=== PATIENT | female | born 1995 | race Caucasian/White ===

== ENCOUNTER 2017-09-28 03:48 | Emergency (ER) | payer MEDICAID ==
[~2017-09-28] VITALS: Ht 162.6 cm; Wt 90.7 kg
--- NOTE | 2017-09-28 03:56 | ER.PDOC ---
General Chief Complaint: Requesting Medical Care Stated Complaint: BACK PAIN,NAUSEA Time seen by MD: 04:00 Source: patient Exam Limitations: no limitations History of Present Illness Initial Comments patient is a at 16 weeks confirmed by us who presents wtih lower back pain and vomiting. no vagina d/c or bleeding. no abd pain. states pain started around1 am and then started to ahve vomiting. states pain is in middle lower back and radiates bilateral. no dysuira. no hematuria. no fevers. Timing/Duration: just prior to arrival Severity/Quality: moderate Location of Pain: low back pain Allergies: Coded Allergies: No Known Allergies (Unverified , 03/28/15) Past Medical History Medical History: no pertinent history Social History Smoking: non-smoker Alcohol Use: none Drug Use: none Review of Systems Constitutional: denies chills, denies fever, denies weakness Respiratory: denies cough, denies shortness of breath, denies wheezing Cardiovascular: denies chest pain, denies edema, denies syncope Gastrointestinal: denies abdominal pain, denies nausea, denies vomiting Genitourinary: denies discharge, denies dysuria, denies frequency Musculoskeletal: back pain, denies muscle stiffness, denies neck pain Skin: denies lesions, denies lumps, denies rash Psychiatric/Neurological: denies anxiety, denies emotional problems, denies headache Endocrine: denies excessive sweating, denies unexplained weight gain, denies unexplaned weight loss Hematologic/Lymphatic: denies blood clots, denies swollen glands All Other Systems: Reviewed and Negative Physical Exam General Appearance: No Apparent Distress, WD/WN EENT: eyes nml inspection, nml ENT inspection, pharynx nml Neck: nml inspection, non-tender Cardiovascular/Respiratory: Regular Rate, Rhythm, No M/R/G, Normal Peripheral Pulses, Normal Breath Sounds, No Respiratory Distress Abdomen: Normal Bowel Sounds, Non Tender, Soft Back: nml inspection (no cva ttp) Extremities: Normal Range of Motion, Non-Tender, Normal Inspection, No Pedal Edema, No Calf Tenderness, Normal Capillary Refill 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, No Motor/Sensory Deficits, Alert, Normal Mood/Affect, Oriented x 3 Skin: Normal Color, Warm/Dry Results/Orders Results/Orders Laboratory Tests Test 09/28/17 04:00 Urine Collection Type UNKNOWN Urine Color YELLOW (YELLOW) Urine Appearance CLEAR (CLEAR) Urine Bilirubin NEGATIVE MG/DL (NEGATIVE) Urine Ketones NEGATIVE (NEGATIVE) Urine Specific [place] 1.025 (1.005-1.035) Urine pH 6 (5.0-6.0) Urine Protein NEGATIVE (NEGATIVE) Urine Urobilinogen 1.0 (NEGATIVE) Urine Nitrate NEGATIVE (NEGATIVE) Urine Leukocyte Esterase 100/ul 1+ (NEGATIVE) Urine Blood NEGATIVE (NEGATIVE) Urine RBC NONE SEEN RBC/HPF (NONE Urine WBC 2-5 WBC/HPF (0-2) Urine Squamous Epithelial Cells MANY #/HPF (FEW) Urine Bacteria NONE SEEN (NONE SEEN) Urine Other 4+ MUCUS #/HPF Urine Glucose NORMAL (NEGATIVE) Administered Medications Medications (Trade) Dose Ordered Sig/Miryam Route PRN Reason Start Time Stop Time Status Last Admin Dose Admin Promethazine HCl (Phenergan) 12.5 mg STAT STAT IM 09/28/17 04:07 09/28/17 04:08 DC 09/28/17 04:21 Progress Progress patient presnts wtih low back pain and nausea and vomiting. patient on exam is afebrile, benign abd exam. no cva ttp. ua ordered phenergan ordered fhts ordered patient fhts 150s. patient urine wihtout infection. no ketones to indicated dehydration. hr also nl. patient s/p meds. tolerating po. at this time given benign abd exam, afebrile, no signs of infection. blv pateitn can be dced with close outpatient f/u. patient has nausea meds at home. patient and mother explained results. risks and return precautions discussed. understands and agrees with plan. Departure Time of Disposition: 04:38 Disposition: 01 HOME, SELF-CARE Impression: Primary Impression: Back pain affecting in second trimester Condition: Stable Patient Instructions: Back Pain in Referrals: [facility] BUENO (PCP) PRIMARY CARE PROVIDER Additional Instructions: please f/u with you ob-deck hand later today Duration or Time Spent with Pa: 30 JOSE ANGEL QUIGLEY MD Sep 28, 2017 03:55
[2017-09-28] MEDS ORDERED: REGLAN PO STA (03:58)
[2017-09-28] MEDS ORDERED: PHENERGAN IM STA (04:07)
[2017-09-28 04:13] LABS: BILIRUBIN,URINE NEGATIVE (NEGATIVE)
[2017-09-28] MEDS ORDERED: PHENERGAN ONE (04:14)
--- NOTE | 2017-09-28 04:18 | NUR ---
FHR [id number] PER DOPPLER
[2017-09-28 04:22] LABS: APPEARANCE,URINE CLEAR (CLEAR); UA COLOR YELLOW (YELLOW)
[2017-09-28 04:58] VITALS: BP 111/51
== END 2017-09-28 04:55 | disposition home or self-care (01) ==
LOC: ER 03:48
DX: O26.892 Other specified pregnancy related conditions, second trimester (principal); M54.5 Low back pain; O21.9 Vomiting of pregnancy, unspecified; Z3A.16 16 weeks gestation of pregnancy
CPT/HCPCS: 81000; 96372; 99283; J2550

== ENCOUNTER 2017-11-09 03:40 | Observation (INO) | payer BC, MEDICAID ==
[~2017-11-09] VITALS: Ht 162.6 cm; Wt 89.8 kg
[2017-11-09 04:15] LABS: BILIRUBIN,URINE NEGATIVE (NEGATIVE); UROBILINOGEN,URINE NORMAL (NEGATIVE)
[2017-11-09 04:16] LABS: APPEARANCE,URINE CLEAR (CLEAR); UA COLOR YELLOW (YELLOW)
[2017-11-09] MEDS ORDERED: DOXY1TAB4 PO (05:04)
== END 2017-11-09 05:35 | disposition home or self-care (01) ==
LOC: ATP 03:40
PROVIDERS: ADMIT Hospitalist; ATTEND Hospitalist
DX: O21.2 Late vomiting of pregnancy (principal); Z3A.21 21 weeks gestation of pregnancy
CPT/HCPCS: 76825; 80307; 81002; G0378 ×2

== ENCOUNTER 2017-12-23 03:18 | Observation (INO) | payer BC, MEDICAID ==
[~2017-12-23] VITALS: Ht 162.6 cm; Wt 88.0 kg
[~2017-12-23 03:18] MED LIST: DOXY1TAB4 PO
[2017-12-23 03:42] LABS: BILIRUBIN,URINE NEGATIVE (NEGATIVE); UROBILINOGEN,URINE NORMAL (NEGATIVE)
[2017-12-23 03:59] LABS: APPEARANCE,URINE HAZY (CLEAR); UA COLOR YELLOW (YELLOW)
[2017-12-23 05:46] VITALS: BP 122/86
== END 2017-12-23 06:00 | disposition home or self-care (01) ==
LOC: ATP 03:18
PROVIDERS: ADMIT Obstetrics & Gynecology; ATTEND Obstetrics & Gynecology
DX: O99.89 Other specified diseases and conditions complicating pregnancy, childbirth and the puerperium (principal); M54.9 Dorsalgia, unspecified; Z3A.28 28 weeks gestation of pregnancy
CPT/HCPCS: 59025; 80307; 81000; 87086; G0378 ×3

== ENCOUNTER → 2018-06-05 | Outpatient (CLI) | payer BC, MEDICAID ==
--- NOTE | 2018-06-05 12:24 | DIREP ---
PROCEDURE:CT ABDOMEN W/O COMPARISON:None. INDICATIONS:R10.13 EPIGASTRIC PAIN TECHNIQUE:Axial images were created through the abdomen without intravenous contrast material. Oral contrast was administered. Sagittal and coronal reconstructions were performed from source images. FINDINGS: LUNG BASES:Normal. No visible pulmonary or pleural disease. LIVER:Normal. No significant liver lesions are identified. BILIARY:Send some are. There is a gallstone in the gallbladder neck. Questionable thickening of the gallbladder wall. Clinical correlation for cholecystitis is recommended. If indicated gallbladder ultrasound can be performed. PANCREAS:Normal. No lesion, fluid collection, ductal dilatation, or atrophy. SPLEEN:Normal. No enlargement or focal lesion. ADRENALS:Normal. No mass or enlargement. URINARY TRACT:Normal. No focal lesions or hydronephrosis. AORTA/VASCULAR:Normal. No aneurysm. RETROPERITONEUM:Normal. No mass or adenopathy. BOWEL/MESENTERY:The appendix is visualized and appears normal. The distal appendix is not included on this examination. There is no intestinal obstruction, free fluid, free air or mesenteric inflammatory changes. ABDOMINAL WALL:Normal. No mass or hernia. PELVIC ORGANS:The pelvis was not imaged. BONES:Normal for age. No bony lesion or acute fracture. OTHER:Negative. CONCLUSION: 1. Cholelithiasis with questionable gallbladder wall thickening. Clinical correlation for cholecystitis is recommended. Consider correlation with gallbladder ultrasound. Dictated by: Jamie Hoang MD on 06/05/2018 at 12:20 PM
== END | disposition home or self-care (01) ==
LOC: CT 09:54
PROVIDERS: ATTEND Nurse Practitioner Family
DX: K80.20 Calculus of gallbladder without cholecystitis without obstruction (principal)
CPT/HCPCS: 74150

== ENCOUNTER 2018-06-14 00:53 | Day surgery (SDC) | payer BC ==
[2018-06-12 14:32] VITALS: BP 118/63
[2018-06-12 14:50] LABS: BASOPHIL % 0.5 % (0.0-0.2); EOSINOPHIL # 0.2 10^3/uL (0.0-0.2); EOSINOPHIL % 2.9 % (0.0-5.0); HEMOGLOBIN 13.1 g/dL (12.0-15.0); LYMPHOCYTES # 2.4 10^3/uL (1.0-4.8); LYMPHOCYTES % 38.8 % (24.0-44.0); MEAN CELL HGB 25.8 pg (26-34); MEAN CELL HGB CONCENTRATION 32.7 g/dL (33-37); MEAN CORP VOLUME 79.1 fL (78-100); MEAN PLATELET VOLUME 9.9 fL (7.8-11.0); MONOCYTES # 0.4 10^3/uL (0.3-0.8); MONOCYTES % 6.2 % (5.0-12.0); NEUTROPHIL # 3.1 10^3/uL (1.8-7.7); NEUTROPHILS % 51.3 % (41.0-85.0); RED CELL DISTRIBUTION WIDTH 14.9 % (11.5-14.5); WHITE BLOOD CELL 6.1 10^3/uL (4.5-11.0)
[2018-06-12 15:04] LABS: CALCIUM 9.3 mg/dL (8.4-10.5); CARBON DIOXIDE 23.5 mmol/L (20.0-32)
[~2018-06-14] VITALS: Ht 162.6 cm; Wt 97.5 kg
[2018-06-14] VITALS (15 sets, daily range): BP systolic 100–147; BP diastolic 48–78
[~2018-06-14 00:53] MED LIST changes: +AMOX1TAB63 PO
[2018-06-14] MEDS ORDERED: NS 100ML 100 ML IV ONE (05:17)
[2018-06-14] MEDS ORDERED: LACTATED RINGERS 1,000 ML ONE ×4 (05:17→15:41)
[2018-06-14] MEDS ORDERED: MEFOXIN ONE (05:18)
[2018-06-14] MEDS ORDERED: LOVENOX SQ ONE ×2 (05:18→10:30)
[2018-06-14] MEDS ORDERED: DECADRON ONE (06:48)
[2018-06-14] MEDS ORDERED: NEOSTIGMINE ONE (06:49)
[2018-06-14] MEDS ORDERED: LIDOCAINE 2% VIAL ONE (06:49)
[2018-06-14] MEDS ORDERED: QUELICIN ONE (06:49)
[2018-06-14] MEDS ORDERED: ZOFRAN ONE ×3 (06:49→14:33)
[2018-06-14] MEDS ORDERED: ZEMURON IV ONE (06:49)
[2018-06-14] MEDS ORDERED: TORADOL ONE (06:49)
[2018-06-14] MEDS ORDERED: DILAUDID ONE (06:49)
[2018-06-14] MEDS ORDERED: SUBLIMAZE ONE (06:50)
[2018-06-14] MEDS ORDERED: DIPRIVAN IV ONE (06:50)
[2018-06-14] MEDS ORDERED: EXPAREL 266 MG/20 ML VIAL IJ ONE (08:30)
[2018-06-14] MEDS ORDERED: AFLURIA 2018-2019 SYRINGE IM ONE (08:47)
[2018-06-14] MEDS ORDERED: LACTATED RINGERS 1,000 ML IV SCH (10:30)
[2018-06-14] MEDS ORDERED: SODIUM CHLORIDE IRR BAG 2,000 ML ONE (11:07)
[2018-06-14] MEDS ORDERED: GENTAMICIN SULFATE ONE (11:08)
[2018-06-14] MEDS ORDERED: SENSORCAINE-MPF 0.25% VIAL ONE (11:08)
[2018-06-14] MEDS ORDERED: WATER ONE (11:08)
[2018-06-14] MEDS ORDERED: SODIUM CHLORIDE IR ONE (11:08)
[2018-06-14] MEDS ORDERED: MORPHINE SULFATE IV PRN ×2 (13:30)
[2018-06-14] MEDS ORDERED: TORADOL IV PRN (13:30)
[2018-06-14] MEDS ORDERED: NORCO 5MG PO PRN (13:30)
[2018-06-14] MEDS ORDERED: ZOFRAN IV PRN ×2 (13:30→14:00)
[2018-06-14] MEDS ORDERED: PHENERGAN IV PRN (13:30)
[2018-06-14] MEDS ORDERED: REGLAN IV PRN (14:00)
[2018-06-14] MEDS ORDERED: DILAUDID IV PRN (14:00)
[2018-06-14] MEDS ORDERED: SUBLIMAZE IV PRN (14:00)
--- NOTE | 2018-06-14 14:08 | OPH ---
DATE OF SURGERY: PREOPERATIVE DIAGNOSIS: Cholelithiasis symptoms, history of dyspepsia. POSTOPERATIVE DIAGNOSES: 1. Acute on chronic calculous cholecystitis with hydrops of the gallbladder. 2. Mild gastritis. SURGEON: Mir Solis DO RECYCLING COORDINATOR: OR staff. ANESTHESIA: General by Susan Stephens CRNA plus local used on the field. PROCEDURES PERFORMED: 1. Laparoscopic-assisted cholecystectomy. 2. Esophagogastroduodenoscopy with biopsy. SPECIMENS: Gallbladder to path with stones as well as gastric mucosa to path. ESTIMATED BLOOD LOSS: 17 mL. COUNTS: At the completion of the case, the counts were correct per OR staff. DESCRIPTION OF PROCEDURE: The patient is a very pleasant 23-year-old female known from previous evaluation. Prior to procedure, informed consent was obtained. At time of procedure, she was taken to the operative suite and placed in supine position. After time-out was completed, general anesthesia was obtained, her abdomen was prepped and draped in normal fashion. Local was used to anesthetize the periumbilical region. Incision was created and 5 mm trocar was introduced into the abdomen with Endo camera visualization. Once in the abdomen, pneumoperitoneum was induced to the level of 14 mmHg. Next, under camera visualization, a 5 mm trocar was placed laterally in the right upper quadrant, 12 mm trocar was placed in the epigastrium and 5 mm trocar was placed in the midline towards the right upper quadrant. The gallbladder was noted to be tensely distended and acutely inflamed making it difficult to grasp. Subsequently, an enterotomy was created, it was decompressed, and there was noted to be clear fluid consistent with hydrops. The gallbladder was lifted and there was noted to be dense adhesions in the omentum to the body of the gallbladder, taken down using electrocautery and aggressive blunt dissection. With adequate mobilization, attention was directed towards the infundibulum. Careful dissection was made with attention directed towards the tensely inflamed tissues. After the cystic duct was ultimately isolated, it was clipped twice proximally and once distally and divided sharply. Further dissection was made to isolate the cystic artery with separate branches that are clipped proximally and divided with electrocautery. The gallbladder was then removed from the liver bed using electrocautery. Once it was completely removed, it was placed in an EndoCatch bag, removed through the epigastric trocar and passed to backtable. Trocar was reinserted. The gallbladder fossa was irrigated with sterile saline and inspected for bleeding. Any bleeding identified was controlled with electrocautery. Relative to the amount of inflammation hemostasis was fairly easily achieved. After the gallbladder fossa was irrigated and irrigation and suctioned, closure was pursued. Under camera visualization, all 4 trocar sites were localized. The camera was placed in the superior trocar and 3 inferior trocars were removed with camera visualization. There was noted to be no bleeding. The superior trocar was removed with camera visualization through the trocar tract after reduction of pneumoperitoneum. Fascia on the epigastric incision was closed with 0 Vicryl suture. Once this was closed, the 4 incisions were irrigated and closed with 4-0 Monocryl in subcutaneous fashion. The patient was cleaned. Steri-Strips and bandage applied. Drapes removed. The patient remained anesthetized. The esophagogastroduodenoscope was advanced transorally with pneumoinsufflation distally in second portion of duodenum. Once the duodenum was adequately visualized, camera was slowly withdrawn to facilitate visualization of the duodenal bulb and the pylorus. Pylorus shows gastritis and biopsies are obtained. The retroflexion maneuver was performed. The cardia and fundus were grossly normal. Camera was reduced, stomach was decompressed. Scope was slowly withdrawn. Distal, mid and proximal esophagus were within normal limits. Vocal cords are not visualized as an endotracheal tube is in place. The camera was removed. Procedure was discontinued. The patient tolerated this procedure well without acute complications noted. Mir Solis DO DR: CAROL/jerry JOB# [id number] CC: Chris Lyles
[2018-06-14] MEDS ORDERED: FLUARIX QUAD 2017-2018 SYRINGE IM ONE (15:00)
[2018-06-14] MEDS: LACTATED RINGERS 1,000 ML SCH ×2 (15:12→15:46)
== END 2018-06-14 16:30 | disposition home or self-care (01) ==
LOC: SDC 00:53
PROVIDERS: ATTEND Surgery
DX: K80.12 Calculus of gallbladder with acute and chronic cholecystitis without obstruction (principal); K82.1 Hydrops of gallbladder; K29.50 Unspecified chronic gastritis without bleeding; E66.9 Obesity, unspecified; Z68.36 Body mass index [BMI] 36.0-36.9, adult; Z79.899 Other long term (current) drug therapy; Z79.2 Long term (current) use of antibiotics; Z98.890 Other specified postprocedural states; Z86.19 Personal history of other infectious and parasitic diseases; Z82.49 Family history of ischemic heart disease and other diseases of the circulatory system; Z80.8 Family history of malignant neoplasm of other organs or systems; Z23 Encounter for immunization
CPT/HCPCS: 36415; 43239; 47562; 80053; 84703; 85025; 85610; 85730; 88304; 88305; 90471; 90686; A4217 ×2; J0330; J1100; J1170; J1580; J1650; J1885; J2001; J2405 ×3; J2710; J3010; J3490 ×3; J7050; J7120 ×4; C9290; J0694